=== PATIENT | female | born 2005 | race Asian ===

== ENCOUNTER 2024-04-17 02:29 | Emergency (ER) | payer MEDICAID ==
[~2024-04-17] VITALS: Ht 157.5 cm; Wt 73.0 kg
[2024-04-17 02:42] VITALS: BP 121/88; PULSE 93; RESP 20; TEMP 98.1
== END 2024-04-17 06:13 | disposition left against medical advice (07) ==
LOC: ER 03:12
DX: R51.9 Headache, unspecified (principal); Z53.21 Procedure and treatment not carried out due to patient leaving prior to being seen by health care provider